=== PATIENT | female | born 1950 | race Caucasian/White ===

== ENCOUNTER 2016-10-06 19:22 | Emergency (ER) | payer OTHER ==
[2016-10-06 19:41] VITALS: BP 132/71; PULSE 66; TEMP 98; BMI 26.5
[2016-10-06] MEDS ORDERED: predniSONE 20 MG TABLET (UD) PO ONE (20:27)
[2016-10-06] MEDS ORDERED: TRIAMCINOLONE ACET 40MG/1ML VIAL IM ONE (20:32)
[2016-10-06] MEDS ORDERED: ALBUTEROL SO4 2.5/IPRATROPIUM 0.5 INH SOL 3 ML VIAL.NEB. NEB ONE (20:32)
--- NOTE | 2016-10-06 20:47 | PDOC ---
History of Present Illness - General Chief Complaint: Cold Symptoms Stated Complaint: ALLERGIC REACTION Time Seen by Provider: 10/06/16 20:08 History Source: Patient Exam Limitations: No Limitations - History of Present Illness Initial Comments: 10/06/16 20:43 66 yr female with cough watery eyes sneezing worse the past 2 days. Pt suffers from seasonal allergies , taking zyrtec, benadryl , some relief., ran out of nasocort spray. Pt was outside most of today in the hot weather. no diff breathing or swallowing. Past History - Past Medical History Allergies/Adverse Reactions: Allergies Allergy/AdvReac Type Severity Reaction Status Date / Time carrot Allergy Mild Swelling Verified 10/06/16 19:41 Home Medications: Ambulatory Orders Albuterol Sulfate Inhaler - [Ventolin HFA Inhaler -] 1 - 2 inh PO QID #1 inhaler 10/06/16 Triamcinolone Acetonide [Nasacort] 16.9 ml NS DAILY #1 bottle 10/06/16 HTN: Yes Thyroid Disease: Yes (hypo) - Psycho/Social/Smoking Cessation Hx Anxiety: No Suicidal Ideation: No Smoking History: Never smoked Have you smoked in the past 12 months: No Information on smoking cessation initiated: No Hx Alcohol Use: No Drug/Substance Use Hx: No Substance Use Type: None *Physical Exam - Vital Signs Last Vital Signs Temp Pulse Resp BP Pulse Ox 98.0 F 66 18 132/71 98 10/06/16 19:38 10/06/16 19:38 10/06/16 19:38 10/06/16 19:38 10/06/16 19:38 - Physical Exam General Appearance: Yes: Nourished, Appropriately Dressed HEENT: positive: EOMI, LATIA, Pharynx Normal, Nasal Congestion, Other (watery eyes) Respiratory/Chest: positive: Lungs Clear, Normal Breath Sounds, Other ( productive cough ). negative: Crackles, Rales, Rhonchi, Stridor, Wheezing Cardiovascular: positive: Regular Rhythm, Regular Rate ED Treatment Course - Medications Given in the ED: ED Medications Discontinued Medications Generic Name Dose Route Start Last Admin Trade Name Freq PRN Reason Stop Dose Admin Albuterol/Ipratropium 1 amp 10/06/16 20:32 10/06/16 20:34 Duoneb - NEB 10/06/16 20:33 1 amp ONCE ONE Administration Medical Decision Making - Medical Decision Making 10/06/16 20:45 cc: sneezing, cough , watery eyes no resp distress non toxic appearing will give bill jameson dc with nasocrot strict follow up with ENT as discussed with pt pt also asking for a referral for a PMD. *DC/Admit/Observation/Transfer Diagnosis at time of Disposition: Cough in adult Seasonal allergic rhinitis Qualifiers: Allergic rhinitis trigger: pollen Qualified Code(s): J30.1 - Allergic rhinitis due to pollen - Discharge Dispostion Disposition: HOME Condition at time of disposition: Good - Prescriptions Prescriptions: Triamcinolone Acetonide [Nasacort] 16.9 ml NS DAILY #1 bottle Albuterol Sulfate Inhaler - [Ventolin HFA Inhaler -] 1 - 2 inh PO QID #1 inhaler - Referrals Referrals: Randy Boswell MD [Primary Care Provider] - Elio Vaughn MD [Staff Physician] - Maranda Whitley MD [Staff Physician] - - Patient Instructions Additional Instructions: drink pleanty of water and rest indoors at home use the nasal spray and the inhaler as directed continue taking zyrtec daily follow with ENTallergy as listed below for primary care
[2016-10-06] MEDS ORDERED: TRIAMCINOLONE ACET 40MG/1ML VIAL ONE (20:54)
== END 2016-10-06 21:04 | disposition home or self-care (01) ==
LOC: SUPCPDRO 19:22 → JERFT 19:22
PROC: 3E0F7GC Introduction of Other Therapeutic Substance into Respiratory Tract, Via Natural or Artificial Opening (ICD-10-PCS; principal; 2016-10-06)
DX: R05 Cough (principal); I10 Essential (primary) hypertension; E03.9 Hypothyroidism, unspecified
CPT/HCPCS: 94640; 99281-25